=== PATIENT | female | born 1995 | race Two or more races ===

== ENCOUNTER 2017-07-04 21:20 | Emergency (ER) | payer MEDICAID ==
[2017-07-04 21:20] VITALS: BMI 30.4
[2017-07-04 21:25] VITALS: BP 113/76; PULSE 84; RESP 16; TEMP 97.7; O2SAT 100
--- NOTE | 2017-07-04 22:22 | ED PDOC ---
HPI: General Adult Time Seen by Provider: 07/04/17 22:11 Chief Complaint (Nursing): Foreign Body Chief Complaint (Provider): Swallowed FB History Per: Patient Additional Complaint(s): 21 yo female, no PMH, Reports she had a root canal done in May and had a cap placed on her tooth, and she believes she swallowed it without knowing yesterday sometime. Reports the denist told her to come for a check up. Denies SOB, CP or difficulty breathing. Past Medical History Reviewed: Nursing Documentation, Vital Signs Vital Signs: Last Vital Signs Temp 97.7 F 07/04/17 21:23 Pulse 84 07/04/17 21:23 Resp 16 07/04/17 21:23 BP 113/76 07/04/17 21:23 Pulse Ox 100 07/04/17 22:22 - Medical History PMH: No Chronic Diseases - Family History Family History: States: No Known Family Hx - Living Arrangements Living Arrangements: With Family - Social History Current smoker - smoking cessation education provided: No Alcohol: None Drugs: Denies - Home Medications Home Medications: Ambulatory Orders Medication Instructions Recorded Ferrous Sulfate [Feosol] 325 mg PO BID #60 tab 06/21/15 - Allergies Allergies/Adverse Reactions: Allergies Allergy/AdvReac Type Severity Reaction Status Date / Time No Known Allergies Allergy Verified 06/18/15 21:36 Review of Systems ROS Statement: Except As Marked, All Systems Reviewed And Found Negative Physical Exam - Reviewed Nursing Documentation Reviewed: Yes Vital Signs Reviewed: Yes - Physical Exam Appears: Positive for: Well, Non-toxic, No Acute Distress Head Exam: Positive for: ATRAUMATIC, NORMAL INSPECTION, NORMOCEPHALIC Skin: Positive for: Normal Color, Warm, DRY Eye Exam: Positive for: EOMI, Normal appearance, PERRL ENT: Positive for: Normal ENT Inspection Neck: Positive for: Normal, Painless ROM Cardiovascular/Chest: Positive for: Regular Rate, Rhythm Respiratory: Positive for: CNT, Normal Breath Sounds Gastrointestinal/Abdominal: Positive for: Normal Exam, Bowel Sounds, Soft Back: Positive for: Normal Inspection Extremity: Positive for: Normal ROM Neurologic/Psych: Positive for: Alert, Oriented - ECG O2 Sat by Pulse Oximetry: 100 Medical Decision Making Medical Decision Making: XRs obtained: (+) FB noted to small intestine, as rad by PADeya Pt educated on results and demonstrated full understanding Disposition - Clinical Impression Clinical Impression: Swallowed foreign body - Patient ED Disposition Is Patient to be Admitted: No - Disposition Disposition: Routine/Home Disposition Time: 23:20 Condition: STABLE Instructions: Foreign Body Ingestion (ED) Forms: [facility] ([place]ani)
--- NOTE | 2017-07-05 09:05 | RAD ---
HISTORY: r/o FB COMPARISON: No prior. TECHNIQUE: Chest PA and lateral FINDINGS: LUNGS: No active pulmonary disease. PLEURA: No significant pleural effusion identified. No pneumothorax apparent. CARDIOVASCULAR: Normal. OSSEOUS STRUCTURES: No significant abnormalities. VISUALIZED UPPER ABDOMEN: Normal. OTHER FINDINGS: None. IMPRESSION: No active disease.
--- NOTE | 2017-07-05 10:34 | RAD ---
HISTORY: r/o FB COMPARISON: No prior. FINDINGS: BOWEL: There is radiodense likely foreign body at the upper pelvis slightly to the right of the midline likely in the distal small bowel loop. Mild constipation is noted. BONES: Normal. OTHER FINDINGS: None. IMPRESSION: Suspicious for radiopaque foreign body in the right upper pelvis likely in the distal small bowel loops. Follow-up exam is recommended.
== END 2017-07-04 23:27 | disposition home or self-care (01) ==
LOC: H.ER 21:20
DX: T18.9XXA Foreign body of alimentary tract, part unspecified, initial encounter (principal)